=== PATIENT | female | born 1955 | race Caucasian/White ===

== ENCOUNTER 2018-03-24 13:09 | Emergency (ER) | payer MEDICARE ==
[~2018-03-24] VITALS: Ht 152.4 cm; Wt 59.1 kg
[2018-03-24 13:21] VITALS: Ht 152.4 cm; Wt 59.1 kg
[2018-03-24 14:06] LABS: BASOPHILS 0.9 % (0-2); HEMATOCRIT 36.7 % (36.0-48.0); HEMOGLOBIN 11.9 g/dL (12-16); LYMPHOCYTES 37.5 % (15-50); MCH 31.2 pg (26.0-34.0); MCHC 32.4 g/dL (31.0-37.0); MCV 96.3 fL (80.0-100.0); MEAN PLATELET VOLUME 10.3 fL (7.4-10.4); MONOCYTES 5.9 % (2-11); NEUTROPHILS 51.7 % (40-80); PLATELET COUNT 200 10x3/uL (130-400); RBC 3.81 10x6/uL (4.00-5.40); WBC 5.5 10x3/uL (4.8-10.8)
[2018-03-24 14:11] LABS: PROTIME 12.8 SECONDS (11.6-15.0)
[2018-03-24 14:13] LABS: D-DIMER-QUANTITATIVE 0.89 ug/mLFEU (0.20-0.54)
[2018-03-24 14:26] LABS: CALC OSMOLALITY 291 mosm/kg (275-300); CALCIUM 9.2 mg/dL (8.5-10.1); CARBON DIOXIDE 29.1 mmol/L (21.0-32.0); CHLORIDE - SERUM 109 mmol/L (98-107); CKMB 1.9 U/L (0.0-3.6); CREATININE - SERUM 0.8 mg/dL (0.6-1.3); GLUCOSE 133 mg/dL (74-106); POTASSIUM - SERUM 3.8 mmol/L (3.5-5.1); SODIUM 145 mmol/L (136-145); UREA NITROGEN 16 mg/dL (7-18); eGFR NON AFRICAN AMERICAN 77 mL/min (90-120)
[2018-03-24 14:27] LABS: TROPONIN-I < 0.017 ng/mL (0.000-0.060)
[2018-03-24 14:27] LABS: APPEARANCE CLEAR (CLEAR); BILIRUBIN NEGATIVE (NEGATIVE); COLOR YELLOW (YELLOW); GLUCOSE NEGATIVE (NEGATIVE); KETONE NEGATIVE (NEGATIVE); NITRITE NEGATIVE (NEGATIVE); PROTEIN NEGATIVE (NEGATIVE); SPECIFIC GRAVITY 1.025 (1.005-1.020); UROBILINOGEN NORMAL (NORMAL)
[2018-03-24 16:25] LABS: ALBUMIN 3.1 g/dL (3.4-5.0); BILIRUBIN - DIRECT 0.07 mg/dL (0.00-0.30); BILIRUBIN - INDIRECT 0.16 mg/dL (0.00-1.00); BILIRUBIN - TOTAL 0.23 mg/dL (0.2-1.3); PROTEIN - SERUM 6.6 g/dL (6.4-8.2)
[2018-03-24 19:07] VITALS: BP 123/100
== END 2018-03-24 19:08 | disposition home or self-care (01) ==
LOC: D.ER 13:09
PROVIDERS: Emergency Medicine
DX: R07.9 Chest pain, unspecified (principal); F17.200 Nicotine dependence, unspecified, uncomplicated